=== PATIENT | female | born 1935 | race Caucasian/White ===

== ENCOUNTER → 2018-01-11 | Outpatient (CLI) | payer MEDICARE, OTHER ==
[~2018-01-11] MED LIST: ANAS1 PO; ASPI325; ASPI325 PO; ATOR40TA; AZIT250 PO; BUSP10; BUSP15 PO; CARV6.25 PO; CEPH500 PO; CHOL10002 PO; CLOB.05TC TP; DILT60 PO; DILT60ER PO; DOXE25; EPRO400; ESOM20 PO; Esgic Tablet1 EACH PO; HYDACE5 PO; HYDACE5325 PO; HYDCHL12.5 PO; KAPIDEX PO; LEVFLO250 PO; LEVSOD25; LEVSOD75 PO; LEVSOD88 PO; MAXALT; METO25ER; METPRE4DP PO; NEBI5 PO; Norco 5-325 Ta1 EACH PO; OMEP20ER PO; OXYB5 PO; OXYB5ER PO; PHENA200 PO; PRAV20 PO; RABE20; RANI150 PO; SIMV5; SUMA25 PO; Synthroid88 MCG PO; TELM40 PO; TELM80 PO; TELM80/12.5 PO; ULTRA-LIGHT RO1 EACH MC; ZOLP5 PO; Zantac150 MG PO; Zithromax250 MG PO
== END | disposition home or self-care (01) ==
LOC: LAB 15:30
DX: N39.0 Urinary tract infection, site not specified (principal)
CPT/HCPCS: 87077; 87086; 87186

== ENCOUNTER → 2018-02-14 | Outpatient (CLI) | payer MEDICARE, OTHER | END | disposition home or self-care (01) | LOC: LAB 14:30 | DX: R35.0 Frequency of micturition (principal); N39.0 Urinary tract infection, site not specified | CPT/HCPCS: 87077; 87086; 87186 ==

== ENCOUNTER → 2018-05-15 | Outpatient (CLI) | payer MEDICARE, OTHER | END | disposition home or self-care (01) | LOC: LAB SHORT 17:15 → LAB 17:15 | DX: N39.0 Urinary tract infection, site not specified (principal) | CPT/HCPCS: 87077; 87086; 87186 ==

== ENCOUNTER → 2020-02-20 | Outpatient (CLI) | payer MEDICARE, OTHER ==
[2020-02-20 15:05] LABS: BASOPHILS ABSOLUTE AUTO 0.04 K/mm3 (0.00-0.23); BASOPHILS PERCENT AUTO 1 % (0-2); EOSINOPHILS ABSOLUTE AUTO 2.89 K/mm3 (0.00-0.68); EOSINOPHILS PERCENT AUTO 34 % (0-6); Hematocrit 33.3 % (33.0-51.0); Hemoglobin 10.6 g/dL (11.5-16.0); IMMATURE GRAN ABSOLUTE AUTO 0.02 K/mm3 (0.00-0.10); IMMATURE GRAN PERCENT AUTO 0 % (0-1); LYMPHOCYTES PERCENT AUTO 14 % (21-46); MONOCYTES ABSOLUTE AUTO 0.64 K/mm3 (0.16-1.47); MONOCYTES PERCENT AUTO 8 % (4-13); Mean Corpuscular HGB 28.1 pg (26.0-34.0); Mean Corpuscular HGB Conc 31.8 g/dL (31.5-36.5); Mean Corpuscular Volume 88 fL (80-100); Mean Platelet Volume 10.7 fL (9.1-12.4); NEUTROPHILS ABSOLUTE AUTO 3.61 K/mm3 (1.96-9.15); NEUTROPHILS PERCENT AUTO 43 % (41-73); Platelet Count 289 K/mm3 (150-400); RDW Coefficient Variation 14.5 % (11.7-14.2); RDW Standard Deviation 46.4 fL (35.1-46.3); Red Blood Cell Count 3.77 M/mm3 (3.80-5.20)
[2020-02-20 15:11] LABS: Alanine Aminotransfer (ALT/SGP 16 U/L (12-78); Albumin, Blood 3.6 g/dL (3.4-5.0); Albumin/Globulin Ratio 0.9 (0.8-1.8); Alk Phos 74 U/L (40-126); Anion Gap 8 mmol/L (6-16); Aspartate Aminotrans (AST/SGOT 10 U/L (12-37); Bilirubin, Total 0.6 mg/dL (0.1-1.0); Blood Urea Nitrogen 16 mg/dL (8-24); Bun/Creatinine Ratio 21.1 (12.0-20.0); CO2, Blood 29 mmol/L (21-32); Calcium, Blood 8.8 mg/dL (8.5-10.1); Chloride, Blood 101 mmol/L (98-108); Creatinine, Blood 0.76 mg/dL (0.40-1.00); Glomerular Filtration Rate >60 (60-); Glucose, Blood 89 mg/dL (70-99); Potassium, Blood 4.5 mmol/L (3.5-5.5); Sodium, Blood 138 mmol/L (136-145); Total Protein, Blood 7.6 g/dL (6.4-8.2)
== END | disposition home or self-care (01) ==
LOC: LAB EV 14:53 → LAB SHORT 14:53
PROVIDERS: Physician Assistant
DX: R04.2 Hemoptysis (principal)
CPT/HCPCS: 80053; 83880; 85025

== ENCOUNTER 2020-05-05 19:13 | Inpatient (IN) | payer MEDICARE, OTHER ==
[~2020-05-05] VITALS: Ht 152.4 cm; Wt 50.8 kg
[~2020-05-05 19:13] MED LIST changes: -Synthroid88 MCG PO
[2020-05-05 20:00] LABS: BASOPHILS PERCENT AUTO 1 % (0-2); EOSINOPHILS ABSOLUTE AUTO 0.38 K/mm3 (0.00-0.68); EOSINOPHILS PERCENT AUTO 3 % (0-6); Hematocrit 29.4 % (33.0-51.0); Hemoglobin 9.4 g/dL (11.5-16.0); IMMATURE GRAN ABSOLUTE AUTO 0.04 K/mm3 (0.00-0.10); IMMATURE GRAN PERCENT AUTO 0 % (0-1); LYMPHOCYTES ABSOLUTE AUTO 0.91 K/mm3 (0.84-5.20); LYMPHOCYTES PERCENT AUTO 8 % (21-46); MONOCYTES ABSOLUTE AUTO 1.83 K/mm3 (0.16-1.47); MONOCYTES PERCENT AUTO 16 % (4-13); Mean Corpuscular HGB 29.1 pg (26.0-34.0); Mean Corpuscular Volume 91 fL (80-100); Mean Platelet Volume 9.6 fL (9.1-12.4); NEUTROPHILS PERCENT AUTO 71 % (41-73); Platelet Count 703 K/mm3 (150-400); RDW Coefficient Variation 17.4 % (11.7-14.2); RDW Standard Deviation 55.3 fL (35.1-46.3); Red Blood Cell Count 3.23 M/mm3 (3.80-5.20); White Blood Cell Count 11.16 K/mm3 (4.00-11.30)
[2020-05-05 20:22] LABS: Albumin, Blood 2.8 g/dL (3.4-5.0); Albumin/Globulin Ratio 0.7 (0.8-1.8); Bilirubin, Total 2.2 mg/dL (0.1-1.0); Bun/Creatinine Ratio 19.8 (12.0-20.0); Calcium, Blood 8.1 mg/dL (8.5-10.1); Creatinine, Blood 1.01 mg/dL (0.40-1.00); Globulin, Blood 3.8 g/dL (2.2-4.0); Potassium, Blood 4.1 mmol/L (3.5-5.5); Total Protein, Blood 6.6 g/dL (6.4-8.2); Troponin I 0.463 ng/mL (0.000-0.040)
[2020-05-05] MEDS ORDERED: FAMO20 PO (21:48)
[2020-05-05] MEDS ORDERED: LEVSOD100 PO (21:49)
[2020-05-05] MEDS ORDERED: ZOLP5 PO (21:49)
[2020-05-05] MEDS ORDERED: Norco 5-325 Ta1 EACH PO (21:50)
[2020-05-05] MEDS ORDERED: PROPRANOLOL HC160 MG PO (21:51)
[2020-05-05] MEDS ORDERED: AMLODIPINE BESYL5 MG PO (21:51)
[2020-05-05] MEDS ORDERED: TELM80 PO (21:52)
[2020-05-05] MEDS ORDERED: ANAS1 PO (21:52)
[2020-05-05] MEDS ORDERED: PRAV20 PO (21:53)
[2020-05-05 21:55] LABS: PCO2 Arterial 30.1 mmHg (35-45); PO2 Arterial 62.3 mmHg (80-100); pH Blood Arterial 7.46 (7.35-7.45)
[2020-05-05 22:01] LABS: International Normalized Ratio 1.07; Prothrombin Time Results 11.4 Sec (9.7-11.5)
[2020-05-05] MEDS ORDERED: ASPI325 PO (22:12)
--- NOTE | 2020-05-06 01:27 | NUR ---
PATIENT ARRIVED TO U6 AT APPROX 2300 VIA GURNEY FROM ER. PATIENT ALERT AND ORIENTED AND ABLE TO AMBULATE TO BATHROOM WITH ONE PERSON ASSIST, DENIES DIZZY SENSATION BUT DYSPNIC WITH EXERTION. SKIN C/D/I, VSS, BED LOW AND LOCKED, CALL LIGHT WITHIN REACH AND USED APPROPRIATLY. ADMISSION COMPLETED AND PATIENT ORIENTED TO ROOM, CALL LIGHT AND HOSPITAL POLICIES. HEAPRIN STARTED AND RUNNING AT ORDERED RATE, VERIFIED WITH NORA RN. PATIENT HAS MULTIPLE ABX AND IV MEDICATIONS DUE WITH ONLY ONE IV AVAILABLE, NEW IV START ATTEMPTED 3X BUT EACH VESSEL ERRODED WITH FLUSH APPLICATION, ICU CALLED AND WILL ATTEMPT A MIDLINE.
[2020-05-06 02:10] LABS: BASOPHILS ABSOLUTE AUTO 0.09 K/mm3 (0.00-0.23); BASOPHILS PERCENT AUTO 1 % (0-2); EOSINOPHILS ABSOLUTE AUTO 0.44 K/mm3 (0.00-0.68); EOSINOPHILS PERCENT AUTO 4 % (0-6); Hematocrit 27.6 % (33.0-51.0); Hemoglobin 8.8 g/dL (11.5-16.0); IMMATURE GRAN ABSOLUTE AUTO 0.04 K/mm3 (0.00-0.10); IMMATURE GRAN PERCENT AUTO 0 % (0-1); LYMPHOCYTES ABSOLUTE AUTO 0.94 K/mm3 (0.84-5.20); LYMPHOCYTES PERCENT AUTO 8 % (21-46); MONOCYTES ABSOLUTE AUTO 1.66 K/mm3 (0.16-1.47); MONOCYTES PERCENT AUTO 15 % (4-13); Mean Corpuscular HGB 28.9 pg (26.0-34.0); Mean Corpuscular HGB Conc 31.9 g/dL (31.5-36.5); Mean Corpuscular Volume 91 fL (80-100); Mean Platelet Volume 9.7 fL (9.1-12.4); NEUTROPHILS ABSOLUTE AUTO 8.19 K/mm3 (1.96-9.15); NEUTROPHILS PERCENT AUTO 72 % (41-73); Platelet Count 642 K/mm3 (150-400); RDW Coefficient Variation 17.6 % (11.7-14.2); RDW Standard Deviation 54.9 fL (35.1-46.3); Red Blood Cell Count 3.05 M/mm3 (3.80-5.20); White Blood Cell Count 11.36 K/mm3 (4.00-11.30)
[2020-05-06 02:28] LABS: Alanine Aminotransfer (ALT/SGP 17 U/L (12-78); Albumin, Blood 2.5 g/dL (3.4-5.0); Albumin/Globulin Ratio 0.7 (0.8-1.8); Alk Phos 55 U/L (50-136); Anion Gap 8 mmol/L (6-16); Aspartate Aminotrans (AST/SGOT 16 U/L (12-37); Bilirubin, Total 1.7 mg/dL (0.1-1.0); Blood Urea Nitrogen 18 mg/dL (8-24); Bun/Creatinine Ratio 19.2 (12.0-20.0); CO2, Blood 23 mmol/L (21-32); Calcium, Blood 7.9 mg/dL (8.5-10.1); Chloride, Blood 102 mmol/L (98-108); Creatinine, Blood 0.94 mg/dL (0.40-1.00); Globulin, Blood 3.6 g/dL (2.2-4.0); Glomerular Filtration Rate >60 (60-); Glucose, Blood 141 mg/dL (70-99); Magnesium, Blood 1.9 mg/dL (1.6-2.4); Potassium, Blood 3.7 mmol/L (3.5-5.5); Sodium, Blood 133 mmol/L (136-145); Total Protein, Blood 6.1 g/dL (6.4-8.2)
--- NOTE | 2020-05-06 07:15 | NUR ---
AM ASSESSMENT: Pt resting in bed. Denies chest pain. Appears SOB with activity. Pt states that she is very tired. LS with crackles throughout. HR with very prominant murmur noted. BT positive. Pulses palp. Denies pain. Pt with heprin gtt running per orders. Call light in reach. Will continue to monitor.
--- NOTE | 2020-05-06 19:19 | NUR ---
shift summary: Pt resting in bed at this time. Pt has done well this shift. Has been up multiple times to BSC to void. Pt LS seem to have improved this shift. Pt still has dyspnea on exertion but seems to be improving. Pt has denied chest pain today. Stable at end of shift. Report given to night RN.
--- NOTE | 2020-05-07 04:47 | NUR ---
SHIFT SUMMARY: PATIENTS LUNG SOUNDS MUCH IMPROVED AT THE END OF THIS SHIFT, VSS, PATIENT ABLE TO GET TO BSC WITH LESS DIFFICULTY. PATIENT STILL SLEPT VERY LITTLE D/T THE CONSTANT NEED TO URINATE, SHE HAS NOT SLEPT WELL IN APPROX 2 DAYS, WILL ATTEMPT TO PROVIDE QUIET BLOCKS OF TIME FOR HER. PATIENT BED LOW AND LOCKED WITH EXIT ALARM ON.
--- NOTE | 2020-05-07 18:47 | NUR ---
PCU DAYSHIFT SUMMARY PATIENT ALERT AND ORIENTED X4 T/O SHIFT. INDEPENDENT TO MINIMAL STAND BY ASSIT. PATIENT REMAINS ON ROOM AIR T/O SHIFT. NSR W/ PVC'S AND AUSCULATED HEART MURMUR. NO CARDIAC EVENTS T/O SHIFT - DENIES ANY CHEST PAIN. RESP E/U ON ROOM AIR - LUNG SOUNDS CRACKLES T/O. PATIENTS HEPARIN GTT STOPPED AND LOVENOX ORDERED. PATIENT TO D/C HOME TOMORROW AND FOLLOW UP WITH CARDIOLOGY. PER HECTOR PATIENT WILL NEED TO BE CANCER FREE WITH 1 YEAR LIFE EXPECTANCY PRIOR TO VALVE REPAIR/REPLACE - PATIENT VERBALIZED UNDERSTAND. NO ACUTE DISTERSS NOTED, VSS. WILL CONTINUE TO MONITOR AND REPORT TO NOC SHIFT RN.
[2020-05-08 04:14] LABS: BASOPHILS ABSOLUTE AUTO 0.07 K/mm3 (0.00-0.23); BASOPHILS PERCENT AUTO 1 % (0-2); EOSINOPHILS ABSOLUTE AUTO 0.77 K/mm3 (0.00-0.68); EOSINOPHILS PERCENT AUTO 8 % (0-6); Hematocrit 25.9 % (33.0-51.0); Hemoglobin 8.3 g/dL (11.5-16.0); IMMATURE GRAN ABSOLUTE AUTO 0.03 K/mm3 (0.00-0.10); IMMATURE GRAN PERCENT AUTO 0 % (0-1); LYMPHOCYTES ABSOLUTE AUTO 0.77 K/mm3 (0.84-5.20); LYMPHOCYTES PERCENT AUTO 8 % (21-46); MONOCYTES ABSOLUTE AUTO 1.35 K/mm3 (0.16-1.47); MONOCYTES PERCENT AUTO 14 % (4-13); Mean Corpuscular HGB 29.3 pg (26.0-34.0); Mean Corpuscular Volume 92 fL (80-100); Mean Platelet Volume 9.5 fL (9.1-12.4); NEUTROPHILS ABSOLUTE AUTO 6.76 K/mm3 (1.96-9.15); NEUTROPHILS PERCENT AUTO 69 % (41-73); Platelet Count 543 K/mm3 (150-400); RDW Coefficient Variation 18.1 % (11.7-14.2); RDW Standard Deviation 57.6 fL (35.1-46.3); Red Blood Cell Count 2.83 M/mm3 (3.80-5.20); White Blood Cell Count 9.75 K/mm3 (4.00-11.30)
[2020-05-08 04:36] LABS: Anion Gap 7 mmol/L (6-16); Blood Urea Nitrogen 16 mg/dL (8-24); Bun/Creatinine Ratio 19.5 (12.0-20.0); CO2, Blood 26 mmol/L (21-32); Calcium, Blood 7.6 mg/dL (8.5-10.1); Chloride, Blood 102 mmol/L (98-108); Creatinine, Blood 0.82 mg/dL (0.40-1.00); Glomerular Filtration Rate >60 (60-); Glucose, Blood 103 mg/dL (70-99); Potassium, Blood 3.2 mmol/L (3.5-5.5); Sodium, Blood 135 mmol/L (136-145)
--- NOTE | 2020-05-08 06:05 | NUR ---
SHIFT SUMMARY PT A&O X4. NO EVENTS OVER NIGHT. VSS. SPO2 > 92% ON RA. MONITOR SHOWS NSR, HR 60's-70's. PT SBA W/ FWW INTO BATHROOM. PT AMBULATING IN HALLWAY X1 THIS SHIFT, TOLERATING WELL. CALL TO MD ERVIN THIS AM TO REPORT POTASSIUM 3.2 THIS AM & PT RECIEVING LASIX. W/ ORDER FOR 40 MG PO KCL, SEE EMAR. WILL CONTINUE TO MONITOR & PROVIDE CARE UNTIL REPORT OFF TO DAY SHIFT RN.
--- NOTE | 2020-05-08 11:08 | NUR ---
ASSUMED CARE AT 0700, REPORT FROM LORE DEL CASTILLO. RESTING IN BED SUPINE AT 30 DEGREE INCLINE. A/A/OX4, PLAN OF CARE REVIEWED WITH PT. DENIES NEEDS AT THIS TIME. WILL CONTINUE TO MONITOR.
--- NOTE | 2020-05-09 05:15 | NUR ---
SHIFT SUMMARY PT A&O X4. VSS. MONITOR SHOWS NSR W/ PAC's, HR 60's-70's. SPO2 > 92% ON RA. NO EVENTS OVER NIGHT. PT ANTICIPATING DISCHARGE HOME TODAY. WILL CONTINUE TO MONITOR AND PROVIDE CARE UNTIL REPORT OFF TO DAY SHIFT RN.
--- NOTE | 2020-05-09 07:34 | NUR ---
ASSUMED CARE AT 0700, REPORT FROM LORE DEL CASTILLO. RESTING IN BED SUPINE IN LOW FOWLERS. 02 SAT NOTED TO BE 87% DURING AM VITALS. CAYLA ROCKWELL, LS COARSE T/O. PLACED ON 2L O2 VIA NC BRINGING SATS TO 93%. WILL CONTINUE TO MONITOR. PLAN OF CARE REVIEWED FOR DAY.
[2020-05-09] MEDS ORDERED: ASPI81CH PO (10:55)
[2020-05-09] MEDS ORDERED: ACET325 PO (10:55)
[2020-05-09] MEDS ORDERED: AZIT500 PO (10:56)
[2020-05-09] MEDS ORDERED: CEFP200 PO (10:59)
[2020-05-09] MEDS ORDERED: AZO CRANBERRY250 MG PO (11:02)
[2020-05-09] MEDS ORDERED: FURO20 PO (11:03)
[2020-05-09] MEDS ORDERED: ONDA4ODT MM (11:05)
[2020-05-09] MEDS ORDERED: PROP160ER PO (11:07)
[2020-05-09] MEDS ORDERED: KLOR-CON M1010 MEQ PO (11:07)
== END 2020-05-09 13:54 | disposition home or self-care (01) | DRG 280 ==
LOC: ER 19:13 → PCU 21:57
PROVIDERS: Emergency Medicine; Family Medicine; Nurse Practitioner Acute Care; ADMIT Internal Medicine
DX: I21.4 Non-ST elevation (NSTEMI) myocardial infarction (principal); J96.01 Acute respiratory failure with hypoxia; J18.9 Pneumonia, unspecified organism; I50.33 Acute on chronic diastolic (congestive) heart failure; C34.90 Malignant neoplasm of unspecified part of unspecified bronchus or lung; I11.0 Hypertensive heart disease with heart failure; Z79.82 Long term (current) use of aspirin; G43.909 Migraine, unspecified, not intractable, without status migrainosus; Z90.13 Acquired absence of bilateral breasts and nipples; Z95.5 Presence of coronary angioplasty implant and graft; I25.10 Atherosclerotic heart disease of native coronary artery without angina pectoris; K21.9 Gastro-esophageal reflux disease without esophagitis; I27.20 Pulmonary hypertension, unspecified; I35.2 Nonrheumatic aortic (valve) stenosis with insufficiency; I07.1 Rheumatic tricuspid insufficiency
CPT/HCPCS: 36415; 36600; 71045; 71046; 71260; 80048; 80053; 82803; 82947; 83605; 83735; 83880; 84132; 84145; 84484; 85025; 85610; 85730; 87040; 93005; 93010; 93306; 93356; 97110; 97116; 97161; 97165; 97530; 99285-25; A9270; A9270-GY; J0456; J0696; J1644; J1650; J1940; J2405; J7050; Q9967

== ENCOUNTER 2021-01-02 03:01 | Observation (INO) | payer MEDICARE, OTHER ==
[~2021-01-02] VITALS: Ht 162.6 cm; Wt 61.2 kg
[~2021-01-02 03:01] MED LIST changes: +ACET325 PO; +AMLODIPINE BESYL5 MG PO; +ASPI81CH PO; +AZIT500 PO; +AZO CRANBERRY250 MG PO; +CEFP200 PO; +FAMO20 PO; +FURO20 PO; +KLOR-CON M1010 MEQ PO; +LEVSOD100 PO; +ONDA8 PO; +POTA10T PO; +PROP160ER PO; +PROPRANOLOL HC160 MG PO
[2021-01-02] MEDS ORDERED: DEXA4 PO (04:07)
[2021-01-02 05:02] LABS: BASOPHILS PERCENT AUTO 0 % (0-2); EOSINOPHILS PERCENT AUTO 0 % (0-6); Hematocrit 33.2 % (33.0-51.0); Hemoglobin 11.1 g/dL (11.5-16.0); IMMATURE GRAN ABSOLUTE AUTO 0.06 K/mm3 (0.00-0.10); IMMATURE GRAN PERCENT AUTO 1 % (0-1); LYMPHOCYTES PERCENT AUTO 5 % (21-46); MONOCYTES ABSOLUTE AUTO 0.53 K/mm3 (0.16-1.47); MONOCYTES PERCENT AUTO 9 % (4-13); Mean Corpuscular HGB 29.4 pg (26.0-34.0); Mean Corpuscular HGB Conc 33.4 g/dL (31.5-36.5); Mean Corpuscular Volume 88 fL (80-100); Mean Platelet Volume 9.6 fL (9.1-12.4); NEUTROPHILS PERCENT AUTO 86 % (41-73); Platelet Count 201 K/mm3 (150-400); RDW Coefficient Variation 15.6 % (11.7-14.2); RDW Standard Deviation 50.4 fL (35.1-46.3); Red Blood Cell Count 3.77 M/mm3 (3.80-5.20); White Blood Cell Count 6.19 K/mm3 (4.00-11.30)
[2021-01-02 05:26] LABS: Alanine Aminotransfer (ALT/SGP 15 U/L (12-78); Albumin, Blood 3.1 g/dL (3.4-5.0); Albumin/Globulin Ratio 1.1 (0.8-1.8); Alk Phos 42 U/L (50-136); Anion Gap 8 mmol/L (6-16); Aspartate Aminotrans (AST/SGOT 12 U/L (12-37); Blood Urea Nitrogen 23 mg/dL (8-24); Bun/Creatinine Ratio 38.8 (12.0-20.0); CO2, Blood 24 mmol/L (21-32); Calcium, Blood 8.2 mg/dL (8.5-10.1); Chloride, Blood 100 mmol/L (98-108); Creatinine, Blood 0.59 mg/dL (0.40-1.00); Globulin, Blood 2.7 g/dL (2.2-4.0); Glomerular Filtration Rate >60 (60-); Glucose, Blood 104 mg/dL (70-99); Potassium, Blood 3.7 mmol/L (3.5-5.5); Sodium, Blood 132 mmol/L (136-145); Total Protein, Blood 5.8 g/dL (6.4-8.2)
[2021-01-02 05:41] LABS: Source, Urine Clean Catch
[2021-01-02 05:45] LABS: Bilirubin, Urine Neg (Neg); Blood, Urine 2+ (Neg); Glucose Qualitative, Urine Neg (Neg); Ketones, Urine Neg (Neg); Leukocyte Esterase, Urine 3+ (Neg); Nitrite, Urine Neg (Neg); Protein, Urine Neg (Neg); Urobilinogen, Urine 1+ (Normal); pH, Urine 6.5 (5.0-8.0)
[2021-01-02 06:01] LABS: Appearance, Urine Hazy (Clear); Bacteria Mod /hpf; Color, Urine Yellow (P-Yellow); Red Blood Cells, Urine 0-2 /hpf (0-2); Squamous Epithelial Cells Few /hpf (Few)
--- NOTE | 2021-01-02 06:43 | NUR ---
ADMITTED 85 YR OLD FEMALE WITH DX OF ENCEPHALOPATHY, WITH REPORTED HALLUCINATIONS, THAT THE AMBULANCE STAFF FOUND HER OUT OF CONTROL BRINGING HER TO THE HOSPITAL. RECEIVED HALDOL 5 MG IN THE ED AND ED RN VOICED SHE CALMED DOWN AND BECAME MORE MANAGEABLE. ORIENTED TO USE OF CALL LIGHT. GRANDDAUGHTER AT BEDSIDE TO HELP ANSWER QUESTIONS, PRESENTS SELF QUIET AND SMILING WHEN BROUGHT TO FLOOR.
[2021-01-02 09:57] LABS: Source, Urine Clean Catch
[2021-01-02 10:05] LABS: Bilirubin, Urine Neg (Neg); Blood, Urine 1+ (Neg); Glucose Qualitative, Urine Neg (Neg); Ketones, Urine Neg (Neg); Leukocyte Esterase, Urine 2+ (Neg); Nitrite, Urine Pos (Neg); Protein, Urine Neg (Neg); Urobilinogen, Urine 1+ (Normal)
[2021-01-02 10:15] LABS: Appearance, Urine Hazy (Clear); Bacteria Mod /hpf; Color, Urine Yellow (P-Yellow); Red Blood Cells, Urine Not Seen /hpf (0-2); Squamous Epithelial Cells Few /hpf (Few)
--- NOTE | 2021-01-02 16:39 | NUR ---
SHIFT SUMMARY NO ACUTE CHANGES T/O SHIFT, A&O TO SELF AND PLACE, CALM AND COOPERATIVE WITH CARE. FORGETFUL AND CONFUSED @ TIMES. ANTIHYPERTENSIVE MEDS HELD THIS AM DUE TO BP BEING 122/45 AND PULSE IN THE 50'S. UA COLLECTED AND SHOWED LIKELY UTI, PT ALSO REPORTED BURNING SENSATION WITH URINATION. IV ROCEPHIN TO BE ADMINISTERED DAILY, FIRST DOSE RAN TODAY. PT IS A SBA WITH FWW TO BATHROOM, REQUIRES MINIMAL ASSISTANCE. AWAITING PALLATIVE AND COMFORT CARE CONSULTS TO BE COMPLETED. PT IS CURRENTLY LYING IN BED WITH CALL LIGHT WITHIN REACH.
--- NOTE | 2021-01-02 19:24 | NUR ---
AWAKE, SITTING ON BED, SMILING. ASSISTED TO AND FROM THE BATHROOM. CALL LIGHT IN REACH
--- NOTE | 2021-01-03 00:54 | NUR ---
RESTING QUIETLY. WAS ASSISTED TO BATHROOM EARLIER. CALL LIGHT IN REACH
--- NOTE | 2021-01-03 03:14 | NUR ---
SHIFT SUMMARY RESTING QUIETLY WITH OCCASIONAL INTERRUPTIONS TO GO TO THE RESTROOM WITH ASSIST. AFFECT CHEERFUL WHEN SPEAKING TO STAFF. CALL LIGHT IN REACH
[2021-01-03 05:44] LABS: BASOPHILS PERCENT AUTO 0 % (0-2); EOSINOPHILS ABSOLUTE AUTO 0.13 K/mm3 (0.00-0.68); EOSINOPHILS PERCENT AUTO 2 % (0-6); Hematocrit 33.3 % (33.0-51.0); IMMATURE GRAN ABSOLUTE AUTO 0.04 K/mm3 (0.00-0.10); IMMATURE GRAN PERCENT AUTO 1 % (0-1); LYMPHOCYTES ABSOLUTE AUTO 0.73 K/mm3 (0.84-5.20); LYMPHOCYTES PERCENT AUTO 13 % (21-46); MONOCYTES ABSOLUTE AUTO 0.61 K/mm3 (0.16-1.47); MONOCYTES PERCENT AUTO 11 % (4-13); Mean Corpuscular HGB 29.7 pg (26.0-34.0); Mean Corpuscular Volume 90 fL (80-100); Mean Platelet Volume 9.4 fL (9.1-12.4); NEUTROPHILS ABSOLUTE AUTO 3.98 K/mm3 (1.96-9.15); NEUTROPHILS PERCENT AUTO 73 % (41-73); Platelet Count 201 K/mm3 (150-400); RDW Coefficient Variation 15.8 % (11.7-14.2); RDW Standard Deviation 51.8 fL (35.1-46.3); White Blood Cell Count 5.49 K/mm3 (4.00-11.30)
[2021-01-03 06:08] LABS: Alanine Aminotransfer (ALT/SGP 14 U/L (12-78); Albumin, Blood 2.8 g/dL (3.4-5.0); Albumin/Globulin Ratio 1.1 (0.8-1.8); Alk Phos 41 U/L (50-136); Anion Gap 3 mmol/L (6-16); Aspartate Aminotrans (AST/SGOT 6 U/L (12-37); Blood Urea Nitrogen 20 mg/dL (8-24); Bun/Creatinine Ratio 24.3 (12.0-20.0); CO2, Blood 29 mmol/L (21-32); Chloride, Blood 104 mmol/L (98-108); Creatinine, Blood 0.82 mg/dL (0.40-1.00); Globulin, Blood 2.6 g/dL (2.2-4.0); Glomerular Filtration Rate >60 (60-); Glucose, Blood 75 mg/dL (70-99); Sodium, Blood 136 mmol/L (136-145); Total Protein, Blood 5.4 g/dL (6.4-8.2)
--- NOTE | 2021-01-03 06:41 | NUR ---
RESTING QUIETLY, WAS ASSISTED TO BATHROM TO VOID. CALL LIGHT IN REACH
--- NOTE | 2021-01-03 06:41 | NUR ---
RESTING QUIETLY. CALL LIGHT IN REACH
--- NOTE | 2021-01-03 06:42 | NUR ---
AWAKE, TOLERATED PO MED WITH A FEW SIPS OF WATER. CALL LIGHT IN REACH
--- NOTE | 2021-01-03 13:20 | NUR ---
COMFORT CARE ORDERS THAT WERE PLACED PRIOR TO ARRIVAL TO UNIT WERE DC'D. [facility] HAS NOT YET EVALUATED PT OR DISCUSSED WISHES WITH FAMILY. EVALUATION WILL LIKELY TAKE PLACE TO TOMMORROW TO DISCUSS POSSIBLE DISCHARGE WITH HOSPICE OR COMFORT CARE.
--- NOTE | 2021-01-03 16:46 | NUR ---
SHIFT SUMMARY NO ACUTE CHANGES T/O SHIFT, A&Ox4 THIS SHIFT WITH OCCASIONAL FORGETFULNESS AND CONFUSTION, CALM AND COOPERATIVE WITH CARE. VS STABLE. PT REPORTED SOME DIFFICULTY SWALLOWING. MEDS WERE GIVEN c APPLESAUCE AND PT WAS ABLE TO SWALLOW WITH NO DIFFICULTY. PROVIDER CHANGED DIET TO MECHANICAL SOFT TO MAKE IT EASIER FOR PT. POSSIBLE SWALLOW EVAL TOMORROW, PROVIDER WILL REEVALUATE TOMORROW. PALLATIVE CARE CONSULT TO BE COMPLETED TOMORROW TO DISCUSS PT OPTIONS. PT IS CURRENTLY SITTING UP IN BED VISITING WITH FAMILY. CALL LIGHT WITHIN REACH.
--- NOTE | 2021-01-03 21:37 | NUR ---
ASSISTED TO AND FROM THE BATHROOM TO VOID. REQUESTED AND RECEIVED ANALGESIC FOR "BACK PAIN". MED EFFECTIVE, PT IS RESTING QUIETLY AT THIS TIME. CALL LIGHT IN REACH
--- NOTE | 2021-01-04 03:50 | NUR ---
SHIFT SUMMARY HAS BEEN RESTING QUIETLY WITH OCCASIONAL AWAKENINGS TO GET TO BATHROOM WITH ASSSIST. RECEIVED ANALGESIC X 1 FOR C/O "BACK" PAIN, MED WAS EFFECTIVE. CALL LIGHT IN REACH. BED ALARM ON
[2021-01-04 05:11] LABS: Hematocrit 34.5 % (33.0-51.0); Hemoglobin 11.3 g/dL (11.5-16.0); Mean Corpuscular HGB 29.2 pg (26.0-34.0); Mean Corpuscular HGB Conc 32.8 g/dL (31.5-36.5); Mean Corpuscular Volume 89 fL (80-100); Mean Platelet Volume 9.4 fL (9.1-12.4); Platelet Count 201 K/mm3 (150-400); RDW Coefficient Variation 15.5 % (11.7-14.2); RDW Standard Deviation 51.3 fL (35.1-46.3); Red Blood Cell Count 3.87 M/mm3 (3.80-5.20)
[2021-01-04 05:42] LABS: Anion Gap 7 mmol/L (6-16); Blood Urea Nitrogen 16 mg/dL (8-24); Bun/Creatinine Ratio 26.8 (12.0-20.0); CO2, Blood 25 mmol/L (21-32); Calcium, Blood 8.2 mg/dL (8.5-10.1); Chloride, Blood 101 mmol/L (98-108); Glomerular Filtration Rate >60 (60-); Glucose, Blood 87 mg/dL (70-99); Potassium, Blood 4.1 mmol/L (3.5-5.5); Sodium, Blood 133 mmol/L (136-145)
[2021-01-04] MEDS ORDERED: Seroquel Xr50 MG PO (11:51)
--- NOTE | 2021-01-04 12:24 | NUR ---
Pt resting in bed upon arrival. [facility] evaluating Pt's swallow. Pt denies pain and dyspnea at this time. Pt is A&OX3 and is unable to verbalize appropriate year. Pt slow to respond and needs queing during assessment of her understanding regarding current condition. Once assisted, Pt does appear to understand and discuss her health issues including cancer diagnosis. Pt is agreeable with plan to D/C home with hospice. Spoke with Bedside RN Derrick and discussed case. Pt requires standbye assist with transfers and ambulation. Pt will requires some assistance with bathing and dressing. Pt is continent of bowel and bladder. Spoke with HH&H Liason Tali and discussed case. Pt currently being screened for hospice appropriateness. Spoke with [facility] and discussed case. Called and spoke with Pt's granddaughter Lily. Engaged in therapeutic discussion regarding plan of care including D/C home with hospice. Provided gentle education on hospice philosophy with V/U made by Lily. Answered questions and therapeutic listening. Lily expresses appreciation and reports no other concerns at this time. Palliative Care will remain available.
--- NOTE | 2021-01-04 15:03 | NUR ---
PT WAS DISCHARGED WITH FAMILY AND BELONGINGS AT SIDE. IV WAS DC'D AND WNL. PT WAS EDUCATED ON NEW MEDICATIONS, FOLLOW UP APPOINTMENTS NEEDED AND NEW DIET RECOMENDATIONS. PT WAS ALERT AND ORIENTED X4 AND MADE NO COMPLAINTS AT THE TIME OF DC.
--- NOTE | 2021-01-04 17:06 | NUR ---
Spiritual care note: Mrs. Gentile is a frail, tiny little thing. She appeared pleasantly confused. She allowed me to pray for her. She is going home today. No concerns/fears presented. She denied pain.
== END 2021-01-04 14:08 | disposition home or self-care (01) ==
LOC: ER 03:01 → MEDS 03:17 → ENPENDDIS 01-04 10:43 → MEDS 01-04 14:08
PROVIDERS: Emergency Medicine; Internal Medicine; ADMIT Internal Medicine
DX: G93.40 Encephalopathy, unspecified (principal); I50.33 Acute on chronic diastolic (congestive) heart failure; I11.0 Hypertensive heart disease with heart failure; E03.9 Hypothyroidism, unspecified; C34.90 Malignant neoplasm of unspecified part of unspecified bronchus or lung; N39.0 Urinary tract infection, site not specified; C50.919 Malignant neoplasm of unspecified site of unspecified female breast; Z88.5 Allergy status to narcotic agent; Z88.0 Allergy status to penicillin; Z88.2 Allergy status to sulfonamides; Z85.841 Personal history of malignant neoplasm of brain; Z79.82 Long term (current) use of aspirin; Z66 Do not resuscitate
CPT/HCPCS: 36415; 36416; 71045; 80048; 80053; 81001; 85025; 85027; 87086; 92610; 96365; 96366; 96372; 99285-25; A9270; G0378; J0696; J1630; J7050